=== PATIENT | female | born 2000 | race Hispanic/Latino ===

== ENCOUNTER → 2024-11-06 | Day surgery (SDC) | payer OTHER ==
[~2024-11-06] MED LIST: FAMOTIDINE 20 MG/2 ML VIAL IV ONE; GLYCOPYRROLATE INJ 0.2 MG/ML VIAL ONE; LIDOCAINE HCL 2% LOCAL INJ 5 ML SDV VIAL INJ ONE; MEPERIDINE HCL INJ 25 MG/ML VIAL ONE; METOCLOPRAMIDE HCL 10 MG/2ML VIAL ONE; NEOSTIGMINE 1 MG/ML 10ML VIAL ONE; PHENYLEPHRINE HCL 1% 10 MG/ML VIAL ONE; PROPOFOL IV EMULSION 10 MG/ML 20 ML VIAL ONE; ROCURONIUM BROMIDE 1 ML IV ONE; SEVOFLURANE INHAL SOLN 250 ML PEN BTL ONE; TRANEXAMIC ACID 1,000 MG/10 ML ML ONE
[2024-11-06] MEDS: LACTATED RINGER'S 1,000 ML ONE (10:24)
[2024-11-06 15:37] VITALS: TEMP 97.8
[2024-11-06 16:15] VITALS: BP 108/70; RESP 18; O2SAT 97
== END | disposition home or self-care (01) ==
LOC: OR 08:20
PROVIDERS: ATTEND Orthopaedic Surgery Sports Medicine
DX: M24.411 Recurrent dislocation, right shoulder (principal); S43.431A Superior glenoid labrum lesion of right shoulder, initial encounter; S42.291A Other displaced fracture of upper end of right humerus, initial encounter for closed fracture; M75.111 Incomplete rotator cuff tear or rupture of right shoulder, not specified as traumatic; X58.XXXA Exposure to other specified factors, initial encounter; Z91.013 Allergy to seafood
CPT/HCPCS: 29807; 29827; 29999; 81025; C1713 ×3; J0690; J2003; J2175; J2371; J2704; J2710; J2765; J7121

== ENCOUNTER 2025-01-01 13:00 | Outpatient (RCR) | payer OTHER | END 2025-01-06 | LOC: PT 13:00 | PROVIDERS: ATTEND Orthopaedic Surgery Sports Medicine | DX: S42.291A Other displaced fracture of upper end of right humerus, initial encounter for closed fracture (principal); M75.101 Unspecified rotator cuff tear or rupture of right shoulder, not specified as traumatic ==